=== PATIENT | male | born 1980 | race Two or more races ===

== ENCOUNTER 2024-11-05 16:28 | Inpatient (IN) | payer OTHER ==
[2024-11-05 16:53] VITALS: BMI 23.3
[2024-11-05] MEDS ORDERED: DICYCLOMINE HCL 10 MG CAPSULE PO PRN (17:52)
[2024-11-05] MEDS ORDERED: NALOXONE (NARCAN) HCL 4 MG/0.1 ML SPRAY NS PRN (17:52)
[2024-11-05] MEDS ORDERED: BISMUTH SUBSALICYLATE 524 MG/30 ML PO PRN (17:52)
[2024-11-05] MEDS ORDERED: MAGNESIUM HYDROX 2400MG/30ML ORAL SUSPENSION 30 ML CUP PO PRN (17:52)
[2024-11-05] MEDS ORDERED: BENZOCAINE/MENTHOL (CHLORASEPTIC ) LOZENGE MM PRN (17:52)
[2024-11-05] MEDS ORDERED: NICOTINE POLACRILEX 2 MG LOZENGE BC PRN (17:52)
[2024-11-05] MEDS ORDERED: POLYETHYLENE GLYCOL (HEALTHYLAX) 3350 17 GM PACKET PO PRN (17:52)
[2024-11-05] MEDS ORDERED: BENZONATATE 200 MG CAPSULE PO PRN (17:52)
[2024-11-05] MEDS ORDERED: guaiFENesin 600 MG TABLET.ER (FP) PO PRN (17:52)
[2024-11-05] MEDS ORDERED: IBUPROFEN 600 MG TABLET (FP) PO PRN (17:52)
[2024-11-05] MEDS ORDERED: MAG HYDROX/AL HYDROX/SIMETH 30 ML UNIT-DOSE CUP PO PRN (17:52)
[2024-11-05] MEDS ORDERED: LOPERAMIDE HCL 2 MG CAPSULE PO PRN (17:52)
[2024-11-05] MEDS ORDERED: ONDANSETRON *ODT* 4 MG TABLET SL PRN (17:52)
[2024-11-05] MEDS ORDERED: METHOCARBAMOL 500 MG TABLET PO PRN (17:52)
[2024-11-05] MEDS ORDERED: IBUPROFEN 400 MG TABLET (FP) PO PRN (17:52)
[2024-11-05] MEDS ORDERED: NICOTINE POLACRILEX 2 MG GUM BUC PRN (17:52)
[2024-11-05] MEDS ORDERED: hydrOXYzine PAMOATE 25 MG CAPSULE (FP) PO PRN (17:52)
[2024-11-05] MEDS ORDERED: ACETAMINOPHEN 325 MG TABLET (FP) PO PRN (17:52)
[2024-11-05] MEDS: MELATONIN 5 MG TABLETS PO SCH (22:20)
[2024-11-05] MEDS: THIAMINE 100 MG TABLET PO SCH (22:20)
[2024-11-06] MEDS: PRENATAL VITAMINS W/ FOLIC ACID TABLET (FP) PO SCH (09:32)
[2024-11-06] MEDS: GABAPENTIN 300 MG CAPSULE PO SCH (09:32)
[2024-11-06] MEDS: NALTREXONE HCL 50 MG TABLET PO ONE (09:33)
[2024-11-06 10:35] VITALS: RESP 17
[2024-11-06 11:42] LABS: MCHC 32.5 g/dl (32.3-36.5); MEAN CELL VOLUME 86.8 fl (79.0-92.2); MEAN PLT VOLUME 11.0 fl (9.4-12.4); RDW 15.6 % (12.1-15.9)
[2024-11-06 11:45] LABS: GLUCOSE,RANDOM 91 mg/dL (74-106)
[2024-11-06 11:46] LABS: TOT PROT 6.1 g/dl (6.4-8.2)
[2024-11-06 11:47] LABS: CO2 28 mmol/L (21-32)
[2024-11-06 11:48] LABS: ALK PHOS 55 U/L (40-150)
[2024-11-06 11:51] LABS: SGOT/AST 27 U/L (5-34); SGPT/ALT 20 U/L (0-55)
[2024-11-06 11:56] LABS: CREATININE 1.35 mg/dL (0.55-1.3)
[2024-11-06 14:01] VITALS: BP 144/99; PULSE 60; TEMP 96.9
[2024-11-07] MEDS ORDERED: NALTREXONE HCL 50 MG TABLET PO SCH (10:00)
== END 2024-11-06 15:08 | disposition other institution (70) | DRG 775 ==
LOC: YASAS 16:28 → Y3N 19:06
PROVIDERS: ADMIT Neuromusculoskeletal Medicine & OMM; ATTEND Allergy & Immunology
PROC: HZ2ZZZZ Detoxification Services for Substance Abuse Treatment (ICD-10-PCS; principal; 2024-11-05)
DX: F10.230 Alcohol dependence with withdrawal, uncomplicated (principal); F12.20 Cannabis dependence, uncomplicated; F17.290 Nicotine dependence, other tobacco product, uncomplicated; F19.24 Other psychoactive substance dependence with psychoactive substance-induced mood disorder; G47.00 Insomnia, unspecified; J45.909 Unspecified asthma, uncomplicated; K21.9 Gastro-esophageal reflux disease without esophagitis
CPT/HCPCS: 36415; 80053; 80307; 85027; 86780; 93005; 93010